=== PATIENT | male | born 1940 | race Caucasian/White ===

== ENCOUNTER 2022-11-15 12:17 | Outpatient (CLI) | payer MEDICARE, BC, SELFPAY | END 2022-11-15 12:18 | disposition home or self-care (01) | LOC: INJ CL 12:19 | PROVIDERS: PCP Internal Medicine; Visit Provider Family Medicine | DX: M54.16 Radiculopathy, lumbar region (principal) | CPT/HCPCS: 64483; J1100; Q9966 ==